=== PATIENT | male | born 1990 | race Hispanic/Latino ===

== ENCOUNTER 2018-01-10 08:00 | Outpatient (RCR) | payer OTHER | END 2018-01-13 | LOC: EDBD → OT 08:00 | PROVIDERS: ATTEND Surgery Surgery of the Hand | DX: S62.512D Displaced fracture of proximal phalanx of left thumb, subsequent encounter for fracture with routine healing (principal); M25.542 Pain in joints of left hand; M25.642 Stiffness of left hand, not elsewhere classified; R53.1 Weakness | CPT/HCPCS: 97010 ×3; 97022; 97110 ×4; 97165; G8988; G8989; L3913 ==